=== PATIENT | male | born 1975 | race Two or more races ===

== ENCOUNTER 2017-10-10 00:38 | Emergency (ER) | payer MEDICAID, OTHER ==
[~2017-10-10] VITALS: Ht 185.4 cm; Wt 84.0 kg
[2017-10-10 01:39] LABS: EOSINOPHILS % 4.7 % (0.0-5.0); HEMATOCRIT. 37.3 % (42.0-52.0); HEMOGLOBIN. 12.9 g/dL (14.0-18.0); LYMPHOCYTES % 25.1 % (20.0-50.0); MEAN CORPUSCULAR HEMOGLOBIN 28.7 pg (28.0-32.0); MEAN CORPUSCULAR VOLUME 83.1 fL (80.0-94.0); MEAN PLATELET VOLUME 8.8 fl (7.4-10.4); MONOCYTES % 7.3 % (2.0-8.0); NEUTROPHILS % 60.9 % (40.0-76.0); PLATELET 360 x1000/uL (130-400); RED BLOOD CELL COUNT 4.49 mill/uL (4.7-6.1)
[2017-10-10 01:40] LABS: CHLORIDE 105 mEq/L (98-107)
[2017-10-10 01:44] LABS: INR 1.1; PROTHROMBIN TIME 11.2 sec (9.4-11.6)
[2017-10-10] MEDS ORDERED: SULFAMETHOXAZOLE/TRIMETHOPRIM 800/160MG TABLET PO ONE (02:00)
[2017-10-10 05:47] VITALS: BP 128/89
== END 2017-10-10 05:55 | disposition home or self-care (01) ==
LOC: ER 00:38
DX: R04.0 Epistaxis (principal); E05.90 Thyrotoxicosis, unspecified without thyrotoxic crisis or storm; F17.200 Nicotine dependence, unspecified, uncomplicated
CPT/HCPCS: 30901; 36415; 80053; 85025; 85610; 99284

== ENCOUNTER 2017-10-10 06:18 | Emergency (ER) | payer MEDICAID, OTHER ==
[~2017-10-10] VITALS: Ht 185.4 cm; Wt 84.0 kg
[2017-10-10] MEDS ORDERED: VISCOUS LIDOCAINE 2% 15 ML UDC MM STA (07:27)
[2017-10-10] MEDS ORDERED: SODIUM CHLORIDE 0.9% 1,000 ML IV ONE (07:27)
[2017-10-10 08:13] LABS: CHLORIDE 110 mEq/L (98-107)
[2017-10-10 08:15] LABS: BASOPHILS % 1.1 % (0.0-2.0); EOSINOPHILS % 2.8 % (0.0-5.0); HEMATOCRIT. 29.8 % (42.0-52.0); HEMOGLOBIN. 10.2 g/dL (14.0-18.0); LYMPHOCYTES % 16.9 % (20.0-50.0); MEAN CORPUSCULAR HEMOGLOBIN 29.1 pg (28.0-32.0); MEAN CORPUSCULAR VOLUME 84.8 fL (80.0-94.0); MONOCYTES % 8.7 % (2.0-8.0); NEUTROPHILS % 70.5 % (40.0-76.0); PLATELET 248 x1000/uL (130-400); RED BLOOD CELL COUNT 3.51 mill/uL (4.7-6.1); RED CELL DISTRIBUTION WIDTH 12.7 % (11.6-14.6)
[2017-10-10 08:27] LABS: INR 1.1; PARTIAL THROMBOPLASTIN TIME 24.2 sec (23.4-31.0); PROTHROMBIN TIME 11.5 sec (9.4-11.6)
[2017-10-10 10:47] VITALS: BP 113/71
== END 2017-10-10 10:51 | disposition home or self-care (01) ==
LOC: ER 06:18
DX: R04.0 Epistaxis (principal); F17.200 Nicotine dependence, unspecified, uncomplicated; E05.90 Thyrotoxicosis, unspecified without thyrotoxic crisis or storm
CPT/HCPCS: 36415; 80048; 85025; 85610; 85730; 99284; J7030; Z7610